=== PATIENT | female | born 1975 | race Caucasian/White ===

== ENCOUNTER → 2017-12-10 | Outpatient (CLI) | payer BC ==
--- NOTE | 2017-12-11 09:03 | CT ---
EXAMINATION TYPE: CT ankle RT wo con DATE OF EXAM: 12/10/2017 COMPARISON: NONE INDICATION: Right ankle pain after injury in August. DLP: 218 mGycm, Automated exposure control for dose reduction was used. CONTRAST: None CT of the right ankle is performed in the axial plane at 3 mm thick sections. Reconstructed images in the coronal and sagittal plane are reviewed. Abundant soft tissue windows are performed. FINDINGS: There is a transverse fracture of the distal fibula with slight lateral displacement of the fracture fragment. Cortical margins appear smooth compatible with a nonunion of an old fracture. Additional more subtle findings include the following: There are several tiny ossifications posterior and inferior to the medial malleolus. An additional curvilinear calcification is posterior to the po sterior lateral portion of the medial malleolus. Series 6 image 38. These areas could represent old a vulsion fractures. There is a curvilinear calcification inferior to the medial portion of the lateral malleolus, series 6 image 41. Additional old avulsion at this location could be considered. These 3 sites appear to have smooth calcification. An additional calcification appears to be within the region of the posterior tibial tendon or soft ti ssues. This appears to be an unusual location for an avulsion. Series 8 image 33. Acute fractures are not identified. There may be some mild diffuse soft tissue swelling remaining on soft tissue windows at the medial and lateral malleolus levels. IMPRESSIONS: 1. 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 2. Multiple suspected old tiny avulsions from the medial malleolus.
== END ==
LOC: RADCTMAIN 18:44
PROVIDERS: ATTEND Orthopaedic Surgery
DX: M84.46 Pathological fracture, tibia and fibula (principal)

== ENCOUNTER → 2020-04-29 | Outpatient (CLI) | payer BC | END | disposition home or self-care (01) | LOC: LABWHC1 14:59 | PROVIDERS: ATTEND Family Medicine | DX: Z20.828 Contact with and (suspected) exposure to other viral communicable diseases (principal) | CPT/HCPCS: U0003; C9803 ==